=== PATIENT | female | born 1995 | race Caucasian/White ===

== ENCOUNTER → 2016-08-20 | Outpatient (CLI) | payer BC ==
[~2016-08-20] MED LIST: ALBU8.5H INH; AZIT250T PO; BUDE10.22 INH; DEXT15CA20 PO; DIPH25CA84 PO; PRED20TA PO
== END ==
LOC: WC.BC 15:56
PROVIDERS: ATTEND Family Medicine
DX: Z12.31 Encounter for screening mammogram for malignant neoplasm of breast (principal); Z80.3 Family history of malignant neoplasm of breast
CPT/HCPCS: 77063; G0202